=== PATIENT | female | born 1950 | race Caucasian/White ===

== ENCOUNTER → 2016-11-24 | Outpatient (CLI) | payer MEDICARE ==
--- NOTE | 2016-11-24 11:02 | MM ---
Reason for exam: history of breast cancer, conservation therapy. Last mammogram was performed 1 year ago. History: Patient is postmenopausal and has history of breast cancer at age 61. Family history of breast cancer in maternal aunt at age 42. Radiation therapy, May 2012. Chemotherapy, December 2011. Malignant right breast needle localzation of the right breast, November 14, 2011. Lumpectomy of the right breast, November 14, 2011. US RT VAD Breast Biopsy of the right breast, November 08, 2011. Benign US right guided VAD of the right breast, April 20, 2010. Took hormonal contraceptives for 5 years beginning at age 22. Physical Findings: Nurse did not find any significant physical abnormalities on exam. MG 3D Diag Mammo W/Cad [facility] Bilateral CC and MLO view(s) were taken. Prior study comparison: November 23, 2015, bilateral MG 3d diag mammo w/cad [facility]. May 13, 2014, left breast MG diagnostic mammo LT w CAD. The breast tissue is heterogeneously dense. This may lower the sensitivity of mammography. No suspicious calcifications are seen. Stable post operative changes in the right breast. No significant new findings when compared with previous films. These results were verbally communicated with the patient and result sheet given to the patient on 11/24/16. ASSESSMENT: Benign, BI-RAD 2 RECOMMENDATION: Follow-up diagnostic mammogram of both breasts in 1 year.
== END | disposition home or self-care (01) ==
LOC: RADMAMWWP 10:06
PROVIDERS: ATTEND Radiology Diagnostic Radiology
DX: Z08 Encounter for follow-up examination after completed treatment for malignant neoplasm (principal); Z85.3 Personal history of malignant neoplasm of breast
CPT/HCPCS: G0204; G0279

== ENCOUNTER → 2017-11-27 | Outpatient (CLI) | payer MEDICARE, OTHER ==
--- NOTE | 2017-11-27 13:09 | MM ---
Reason for exam: additional evaluation requested from prior study. Last mammogram was performed 1 year ago. History: Patient is postmenopausal and has history of breast cancer at age 61. Family history of breast cancer in maternal aunt at age 42. Radiation therapy, May 2012. Chemotherapy, December 2011. Malignant right breast needle localzation of the right breast, November 14, 2011. Lumpectomy of the right breast, November 14, 2011. US RT VAD Breast Biopsy of the right breast, November 08, 2011. Benign US right guided VAD of the right breast, April 20, 2010. Took hormonal contraceptives for 5 years beginning at age 22. Physical Findings: Nurse did not find any significant physical abnormalities on exam. MG 3D Diag Mammo W/Cad [facility] Bilateral CC and MLO view(s) were taken. Prior study comparison: November 24, 2016, bilateral MG 3d diag mammo w/cad [facility]. November 23, 2015, bilateral MG 3d diag mammo w/cad [facility]. The breast tissue is heterogeneously dense. This may lower the sensitivity of mammography. Prior biopsy in the right breast. No significant new findings when compared with previous films. These results were verbally communicated with the patient and result sheet given to the patient on 11/27/17. ASSESSMENT: Benign, BI-RAD 2 RECOMMENDATION: Routine screening mammogram of both breasts in 1 year.
== END | disposition home or self-care (01) ==
LOC: RADMAMWWP 10:37
PROVIDERS: ATTEND Radiology Diagnostic Radiology
DX: Z08 Encounter for follow-up examination after completed treatment for malignant neoplasm (principal); Z85.3 Personal history of malignant neoplasm of breast
CPT/HCPCS: 77066; G0279

== ENCOUNTER → 2017-12-11 | Outpatient (CLI) | payer MEDICARE, OTHER ==
--- NOTE | 2017-12-11 18:07 | BD ---
EXAMINATION TYPE: MG DEXA axial skeleton. DATE OF EXAM: 12/11/2017 COMPARISON: 07/23/2012 CLINICAL HISTORY: 67-year-old female age-related osteoporosis Height: 63.5 IN Weight: 188 LBS FRAX RISK QUESTIONS: Alcohol (3 or more units per day): NO Family History (Parent hip fracture): NO Glucocorticoids (More than 3mos): NO (Ex: prednisone, prednisolone, methylprednisolone, dexamethasone, and hydrocortisone). History of Fracture in Adulthood: YES RT FOOT FX AGE 67 Secondary Osteoporosis: 1. Type 1 Diabetes: NO 2. Hyperthyroidism: NO 3. Menopause before 45: AGE 54 4. Malnutrition: NO 5. Chronic liver disease: NO Rheumatoid Arthritis: NO Current Tobacco Use: NO RISK FACTORS HISTORY OF: Surgery to Hip([facility]) YES When: 07/2005 LEFT; 2 2005 RT HIP Active: YES Diet low in dairy products/other sources of calcium: YES Postmenopausal woman: AGE 54 MEDICATIONS: Thyroid Medications: YES Which medication: Synthroid How Lon YEARS Additional Medications: CALCIUM, VIT D, SYNTHROID, GABAPENTIN, TRAMADOL, HYDROCODONE,DEPRESSION MEDS, CHOLESTEROL MEDS, MAGNESIUM, VIT C, VIT B COMPLEX, COQ10, Additional History: BREAST CANCER WITH CHEMO AND RADIATION 2011 EXAM MEASUREMENTS: Bone mineral densitometry was performed using the [employer] System. Bone mineral density as measured about the Lumbar spine is: ----- L1-L4(G/cm2): 1.381 T Score Values are as follows: ----- L2: 1.3 ----- L3: 2.5 ----- L4: 1.7 ----- L1-L4: 1.7 Bone mineral density has: Increased 2.3% since study of: 07/23/2012 [facility] HIP REPLACEMENTS IMPRESSION: Normal (Values between +1 and -1 indicate normal bone mass). Consider repeating this study in 5 year s or sooner if there is some new clinical indication. Note that measurements were not taken at the hips given prior bilateral hip replacements. NOTE: T-SCORE=SD OF THE YOUNG ADULT MEAN.
== END | disposition home or self-care (01) ==
LOC: RADBDWWP 09:08
PROVIDERS: ATTEND Internal Medicine
DX: M81.0 Age-related osteoporosis without current pathological fracture (principal)
CPT/HCPCS: 77080

== ENCOUNTER → 2018-11-28 | Outpatient (CLI) | payer MEDICARE ==
--- NOTE | 2018-11-28 13:41 | MM ---
Reason for exam: additional evaluation requested from abnormal screening. Last mammogram was performed 1 year ago. History: Patient is postmenopausal and has history of breast cancer at age 61. Family history of breast cancer in maternal aunt at age 42. Radiation therapy, May 2012. Chemotherapy, December 2011. Malignant right breast needle localzation of the right breast, November 14, 2011. Lumpectomy of the right breast, November 14, 2011. US RT VAD Breast Biopsy of the right breast, November 08, 2011. Benign US right guided VAD of the right breast, April 20, 2010. Took hormonal contraceptives for 5 years beginning at age 22. Physical Findings: Nurse did not find any significant physical abnormalities on exam. MG 3D Diag Mammo W/Cad [facility] Bilateral CC and MLO view(s) were taken. Prior study comparison: November 27, 2017, bilateral MG 3d diag mammo w/cad [facility]. November 24, 2016, bilateral MG 3d diag mammo w/cad [facility]. The breast tissue is heterogeneously dense. This may lower the sensitivity of mammography. Interval weight loss with increased breast density. Post surgical changes on the right with fat necrosis calcifications. Medial decreased subareolar nodularity on the left. These results were verbally communicated with the patient and result sheet given to the patient on 11/28/18. ASSESSMENT: Incomplete: need additional imaging evaluation, BI-RAD 0 RECOMMENDATION: Ultrasound of the left breast. subareolar and medial half
--- NOTE | 2018-11-28 13:45 | USB ---
Reason for exam: additional evaluation requested from abnormal screening. History: Patient is postmenopausal and has history of breast cancer at age 61. Family history of breast cancer in maternal aunt at age 42. Radiation therapy, May 2012. Chemotherapy, December 2011. Malignant right breast needle localzation of the right breast, November 14, 2011. Lumpectomy of the right breast, November 14, 2011. US RT VAD Breast Biopsy of the right breast, November 08, 2011. Benign US right guided VAD of the right breast, April 20, 2010. Took hormonal contraceptives for 5 years beginning at age 22. US Breast Limited LT Left limited breast ultrasound including focal area of concern, retroareolar and axilla demonstrates scattered and heterogeneous areas present likely prominent islands of tissue. Given the changed appearance of the breast after patients weight loss, short interval follow up recommended. These results were verbally communicated with the patient and result sheet given to the patient on 11/28/18. ASSESSMENT: Probably benign, BI-RAD 3 RECOMMENDATION: Follow-up diagnostic mammogram of the left breast in 6 months.
== END | disposition home or self-care (01) ==
LOC: RADMAMWWP 10:47
PROVIDERS: ATTEND Radiology Diagnostic Radiology
DX: Z08 Encounter for follow-up examination after completed treatment for malignant neoplasm (principal); Z85.3 Personal history of malignant neoplasm of breast
CPT/HCPCS: 77066; 76642; G0279; 77062

== ENCOUNTER → 2019-05-29 | Outpatient (CLI) | payer MEDICARE ==
--- NOTE | 2019-05-30 10:06 | MM ---
Reason for exam: follow-up at short interval from prior study. Last mammogram was performed 6 months ago. History: Patient is postmenopausal, has history of other cancer at age 63, and has history of breast cancer at age 61. Family history of breast cancer in maternal aunt at age 42. Radiation therapy, May 2012. Chemotherapy, December 2011. Malignant right breast needle localzation of the right breast, November 14, 2011. Lumpectomy of the right breast, November 14, 2011. US RT VAD Breast Biopsy of the right breast, November 08, 2011. Benign US right guided VAD of the right breast, April 20, 2010. Took hormonal contraceptives for 5 years beginning at age 22. Physical Findings: Nurse did not find any significant physical abnormalities on exam. MG 3D Diag Mammo W/Cad LT CC, MLO, LM, and spot compression MLO view(s) were taken of the left breast. Prior study comparison: November 28, 2018, bilateral MG 3d diag mammo w/cad [facility]. November 27, 2017, bilateral MG 3d diag mammo w/cad [facility]. The breast tissue is heterogeneously dense. This may lower the sensitivity of mammography. The previously seen left retroareolar and medial asymmetries do not persist. Improved compression. Superior left breast distortion resolves on additional views. These results were verbally communicated with the patient and result sheet given to the patient on 05/29/19. ASSESSMENT: Benign, BI-RAD 2 RECOMMENDATION: Routine screening mammogram of both breasts in 6 months. Back on schedule for October 2019.
== END | disposition home or self-care (01) ==
LOC: RADMAMWWP 10:31
PROVIDERS: ATTEND Radiology Diagnostic Radiology
DX: R92.8 Other abnormal and inconclusive findings on diagnostic imaging of breast (principal); Z85.3 Personal history of malignant neoplasm of breast
CPT/HCPCS: 77065; G0279; 77061

== ENCOUNTER → 2020-01-09 | Outpatient (CLI) | payer MEDICARE ==
--- NOTE | 2020-01-09 11:10 | MM ---
Reason for exam: additional evaluation requested from prior study. Last mammogram was performed 7 months ago. History: Patient is postmenopausal, has history of other cancer at age 63, and has history of breast cancer at age 61. Family history of breast cancer in maternal aunt at age 42. Radiation therapy, May 2012. Chemotherapy, December 2011. Malignant right breast needle localzation of the right breast, November 14, 2011. Lumpectomy of the right breast, November 14, 2011. US RT VAD Breast Biopsy of the right breast, November 08, 2011. Benign US right guided VAD of the right breast, April 20, 2010. Took hormonal contraceptives for 5 years beginning at age 22. Physical Findings: Nurse did not find any significant physical abnormalities on exam. MG 3D Diag Mammo W/Cad [facility] Bilateral CC and MLO view(s) were taken. Prior study comparison: May 29, 2019, left breast MG 3d diag mammo w/cad LT. November 28, 2018, bilateral MG 3d diag mammo w/cad [facility]. November 27, 2017, bilateral MG 3d diag mammo w/cad [facility]. November 24, 2016, bilateral MG 3d diag mammo w/cad [facility]. The breast tissue is heterogeneously dense. This may lower the sensitivity of mammography. Benign appearing vascular calcifications. No suspicious abnormality. The left upper outer quadrant focal asymmetry appears less pronounced than on the prior. Post therapy change on the right. These results were verbally communicated with the patient and result sheet given to the patient on 01/09/20. ASSESSMENT: Benign, BI-RAD 2 RECOMMENDATION: Follow-up diagnostic mammogram of both breasts in 1 year.
== END | disposition home or self-care (01) ==
LOC: RADMAMWWP 09:41
PROVIDERS: ATTEND Internal Medicine
DX: C50.911 Malignant neoplasm of unspecified site of right female breast (principal); C50.912 Malignant neoplasm of unspecified site of left female breast; Z78.0 Asymptomatic menopausal state; Z85.89 Personal history of malignant neoplasm of other organs and systems; Z80.3 Family history of malignant neoplasm of breast
CPT/HCPCS: 77066; G0279; 77062

== ENCOUNTER → 2021-03-19 | Outpatient (CLI) | payer MEDICARE ==
--- NOTE | 2021-03-24 10:00 | MM ---
Reason for exam: screening (asymptomatic). Last mammogram was performed 1 year and 2 months ago. History: Patient is postmenopausal, has history of other cancer at age 63, and has history of breast cancer at age 61. Family history of breast cancer in maternal aunt at age 42. Radiation therapy, May 2012. Chemotherapy, December 2011. Malignant right breast needle localzation of the right breast, November 14, 2011. Lumpectomy of the right breast, November 14, 2011. US RT VAD Breast Biopsy of the right breast, November 08, 2011. Benign US right guided VAD of the right breast, April 20, 2010. Took hormonal contraceptives for 5 years beginning at age 22. Physical Findings: A clinical breast exam by your physician is recommended on an annual basis and results should be correlated with mammographic findings. MG 3D Screening Mammo W/Cad Bilateral CC and MLO view(s) were taken. Prior study comparison: January 09, 2020, bilateral MG 3d diag mammo w/cad [facility]. May 29, 2019, left breast MG 3d diag mammo w/cad LT. The breast tissue is heterogeneously dense. This may lower the sensitivity of mammography. Right post lumpectomy and radiation change. No significant changes when compared with prior studies. ASSESSMENT: Benign, BI-RAD 2 RECOMMENDATION: Routine screening mammogram of both breasts in 1 year.
== END | disposition home or self-care (01) ==
LOC: RADMAMWWP 13:28
PROVIDERS: ATTEND Internal Medicine
DX: Z12.31 Encounter for screening mammogram for malignant neoplasm of breast (principal); Z78.0 Asymptomatic menopausal state; Z85.3 Personal history of malignant neoplasm of breast; Z80.3 Family history of malignant neoplasm of breast
CPT/HCPCS: 77063; 77067

== ENCOUNTER → 2021-09-22 | Outpatient (CLI) | payer MEDICARE ==
--- NOTE | 2021-09-23 10:00 | ECHOF ---
Referral Reason:I35.0 Nonrheumatic aortic (valve) stenosis MEASUREMENTS -------- HEIGHT: 160.0 cm WEIGHT: 99.8 kg BP: RVIDd: 3.3 cm (< 3.3) IVSd: 1.3 cm (0.6 - 1.1) LVIDd: 4.2 cm (3.9 - 5.3) LVPWd: 1.3 cm (0.6 - 1.1) IVSs: 1.4 cm LVIDs: 3.1 cm LVPWs: 1.5 cm LA Diam: 4.1 cm (2.7 - 3.8) LAESV Index (A-L): 32.84 ml/m Ao Diam: 3.0 cm (2.0 - 3.7) AV Cusp: 1.6 cm (1.5 - 2.6) LA Diam: 4.4 cm (2.7 - 3.8) MV EXCURSION: 19.089 mm (> 18.000) MV EF SLOPE: 78 mm/s (70 - 150) EPSS: 0.6 cm MV E Guero: 0.81 m/s MV DecT: 297 ms MV A Guero: 1.26 m/s MV E/A Ratio: 0.64 AV maxP.35 mmHg AV meanP.09 mmHg RAP: 5.00 mmHg RVSP: 47.14 mmHg FINDINGS -------- Sinus rhythm. This was a technically good study. The left ventricular size is normal. There is mild concentric left ventricular hypertrophy. Overa ll left ventricular systolic function is normal with, an EF between 55 - 60 %. The right ventricle is normal in size. LA is midly dilated 29-33ml/m2. The right atrial size is normal. There is mild aortic valve sclerosis. There is mild aortic stenosis present. Peak/mean gradient a cross the Aortic Valve is 18.35mmHg / 9.09mmHg. Mild mitral regurgitation is present. Mild tricuspid regurgitation present. There is moderate pulmonary hypertension. The right ventric ular systolic pressure, as measured by Doppler, is 47.14mmHg. There is no pulmonic regurgitation present. Echo free space represents a pericardial fat pad. CONCLUSIONS -------- 1. The left ventricular size is normal. 2. There is mild concentric left ventricular hypertrophy. 3. Overall left ventricular systolic function is normal with, an EF between 55 - 60 %. 4. The right ventricle is normal in size. 5. LA is midly dilated 29-33ml/m2. 6. The right atrial size is normal. 7. There is mild aortic valve sclerosis. 8. There is mild aortic stenosis present. 9. Peak/mean gradient across the Aortic Valve is 18.35mmHg / 9.09mmHg. 10. Mild mitral regurgitation is present. 11. Mild tricuspid regurgitation present. 12. There is moderate pulmonary hypertension. 13. The right ventricular systolic pressure, as measured by Doppler, is 47.14mmHg. 14. There is no pulmonic regurgitation present. 15. Echo free space represents a pericardial fat pad. GAS APPLIANCE ADJUSTER: Mirtha Coyle RDCS
== END | disposition home or self-care (01) ==
LOC: RADECHMAIN 15:37
PROVIDERS: ATTEND Internal Medicine
DX: I08.3 Combined rheumatic disorders of mitral, aortic and tricuspid valves (principal)
CPT/HCPCS: 93306

== ENCOUNTER → 2021-10-12 | Outpatient (CLI) | payer MEDICARE ==
--- NOTE | 2021-10-12 19:07 | US ---
EXAMINATION TYPE: US carotid duplex BILAT DATE OF EXAM: 10/12/2021 COMPARISON: NONE CLINICAL HISTORY: 71-year-old female I65.23 Occlusion and stenosis. No h/o stroke. TECHNIQUE: Carotid duplex ultrasound examination. Indirect Doppler criteria was utilized. FINDINGS: EXAM MEASUREMENTS: RIGHT: Peak Systolic Velocity (PSV) cm/sec ----- Right CCA: 71.3 ----- Right ICA: 134 ----- Right ECA: 120 ICA/CCA ratio: 1.8 RIGHT: End Diastole cm/sec ----- Right CCA: 13.3 ----- Right ICA: 15.6 ----- Right ECA: 15.6 LEFT: Peak Systolic Velocity (PSV) cm/sec ----- Left CCA: 52.5 ----- Left ICA: 109 ----- Left ECA: 65.4 ICA/CCA ratio: 2.1 LEFT: End Diastole cm/sec ----- Left CCA: 12.2 ----- Left ICA: 27.8 ----- Left ECA: 65.4 VERTEBRALS (direction of flow): Right Vertebral: Antegrade Left Vertebral: Antegrade Rhythm: Normal Fish Rod Maker notes: Mild homogeneous plaque with no significant stenosis seen IMPRESSION: No hemodynamically significant internal carotid artery stenosis on either side. Criteria for Assigning % of Stenosis / Diameter reduction (Estimation based on the indirect measurements of the internal carotid artery velocities (ICA PSV). 1. Normal (no stenosis)=ICA PSV < 125 cm/s: ratio < 2.0: ICA EDV<40 cm/s. 2. Less than 50% stenosis=ICA PSV < 125 cm/s: ratio < 2.0: ICA EDV<40 cm/s. 3. 50 to 69% stenosis=ICA PSV of 125 to 230 cm/s: ration 2.0 ? 4.0: ICA EDV 40-100 cm/s. 4. Greater than 70% stenosis to near occlusion= ICA PSV > 230 cm/s: ratio > 4.0: ICA EDV > 100 cm/s. 5. Near occlusion= ICA PSV velocities may be low or undetectable: variable ratio and ICA EDV. 6. Total occlusion=unable to detect flow.
== END | disposition home or self-care (01) ==
LOC: RADUSWWP 15:22
PROVIDERS: ATTEND Internal Medicine
DX: I65.23 Occlusion and stenosis of bilateral carotid arteries (principal)
CPT/HCPCS: 93880

== ENCOUNTER → 2023-03-22 | Outpatient (CLI) | payer MEDICARE, OTHER ==
--- NOTE | 2023-03-23 12:09 | MM ---
Reason for Exam: Screening (asymptomatic). Last screening mammogram was performed 12 month(s) ago. Patient History: Menarche at age 14. First Full-Term at age 22. Postmenopausal. Breast cancer, age 61. Other cancer, age 63. Previous chest radiation therapy. Previous chemotherapy. Hormonal Contraceptives for 5 years from age 22 until age 27. 11/14/2011, Lumpectomy on the Right side. 11/14/2011, Malignant Excisional Biopsy on the right side. 04/20/2010, Benign Core Biopsy on the right side. 05/2012, Radiation Therapy. 12/2011, Chemotherapy. Maternal aunt had breast cancer, age 42. Prior Study Comparison: 01/09/2020 Bilateral Diagnostic Mammogram, [facility]. 03/19/2021 Bilateral Screening Mammogram, [facility]. 03/21/2022 Bilateral MG 3D screening mammo w/cad, [facility]. Tissue Density: The breast tissue is heterogeneously dense. This may lower the sensitivity of mammography. Findings: Analyzed By CAD. Posttreatment changes right breast with surgical clips and constipation. There is no suspicious group of microcalcifications or new suspicious mass in either breast. Overall Assessment: Benign, BI-RAD 2 Management: Screening Mammogram of both breasts in [address] [facility] will attempt to contact patient to return for supplemental views and ultrasound if indicated. Patient should continue monthly self-breast exams. A clinical breast exam by your physician is recommended on an annual basis. This exam should not preclude additional follow-up of suspicious palpable abnormalities. Note on Wanda scores and lifetime risk: 1. A Wanda score greater than 3% is considered moderate risk. If this is the case, consider specialist referral to assess eligibility for a risk reducing agent. 2. If overall lifetime risk for the development of breast cancer is 20% or higher, the patient may qualify for future screening with alternating mammogram and breast MRI. Electronically signed and approved by: Damian Barba DO
== END | disposition home or self-care (01) ==
LOC: RADMAMWWP 08:47
PROVIDERS: ATTEND Internal Medicine Hematology & Oncology
DX: Z12.31 Encounter for screening mammogram for malignant neoplasm of breast (principal); Z78.0 Asymptomatic menopausal state; Z80.3 Family history of malignant neoplasm of breast
CPT/HCPCS: 77063; 77067

== ENCOUNTER → 2024-02-19 | Outpatient (CLI) | payer MEDICARE, OTHER ==
--- NOTE | 2024-02-19 10:25 | XR ---
EXAMINATION TYPE: XR Hip Complete RT DATE OF EXAM: 02/19/2024 9:46 AM CLINICAL INDICATION:Female, 73 years old with history of M25.551 RIGHT HIP PAIN; [facility] COMPARISON: None. TECHNIQUE: XR Hip Complete RT; hip was examined in the frontal and lateral projections and a AP pelvi s. FINDINGS: No evidence for acute process, joint dislocation or significant soft tissue swelling. IMPRESSION: No acute process.
== END | disposition home or self-care (01) ==
LOC: RADXRMAIN 09:13
PROVIDERS: ATTEND Internal Medicine
DX: Z12.31 Encounter for screening mammogram for malignant neoplasm of breast (principal); Z13.820 Encounter for screening for osteoporosis
CPT/HCPCS: 73502

== ENCOUNTER → 2024-03-22 | Outpatient (CLI) | payer MEDICARE, OTHER ==
--- NOTE | 2024-03-27 22:56 | MM ---
Reason for Exam: Screening (asymptomatic). Last screening mammogram was performed 12 month(s) ago. Patient History: Menarche at age 14. First Full-Term at age 22. Postmenopausal. Breast cancer, age 61. Other cancer, age 63. Previous chest radiation therapy. Previous chemotherapy. Hormonal Contraceptives for 5 years from age 22 until age 27. 11/14/2011, Lumpectomy on the Right side. 11/14/2011, Malignant Excisional Biopsy on the right side. 04/20/2010, Benign Core Biopsy on the right side. 05/2012, Radiation Therapy. 12/2011, Chemotherapy. Maternal aunt had breast cancer, age 42. Prior Study Comparison: 03/19/2021 Bilateral Screening Mammogram, [facility]. 03/21/2022 Bilateral MG 3D screening mammo w/cad, [facility]. 03/22/2023 Bilateral MG 3D screening mammo w/cad, [facility]. Tissue Density: There are scattered areas of fibroglandular density. Findings: Analyzed By CAD. The pattern is symmetrical. There is a large coarse calcification with some distortion of prior lumpectomy site. No significant interval changes are evident. Benign vascular calcifications present bilaterally. Multiple scattered benign round calcifications are within the left breast. No suspicious groups of microcalcifications, spiculated or lobular masses, architectural distortion or other secondary signs of malignancy are mammographically apparent. Overall Assessment: Benign, BI-RAD 2 Management: Screening Mammogram of both breasts in 1 year. A negative mammogram report should not preclude additional follow up of suspicious palpable abnormalities. Patient should continue monthly self breast exam. A clinical breast exam by your physician is recommended on an annual basis and results should be correlated with mammographic findings. Note on Wanda scores and lifetime risk: 1. A Wanda score greater than 3% is considered moderate risk. If this is the case, consider specialist referral to assess eligibility for a risk reducing agent. 2. If overall lifetime risk for the development of breast cancer is 20% or higher, the patient may qualify for future screening with alternating mammogram and breast MRI. Electronically signed and approved by: Duane Leyva D.O. Radiologis
== END | disposition home or self-care (01) ==
LOC: RADMAMWWP 10:32
PROVIDERS: ATTEND Internal Medicine Hematology & Oncology
DX: Z12.31 Encounter for screening mammogram for malignant neoplasm of breast (principal); Z78.0 Asymptomatic menopausal state; Z80.3 Family history of malignant neoplasm of breast
CPT/HCPCS: 77063; 77067

== ENCOUNTER → 2024-03-22 | Outpatient (CLI) | payer MEDICARE, OTHER ==
--- NOTE | 2024-03-27 12:27 | BD ---
EXAMINATION TYPE: Axial Bone Density DATE OF EXAM: 03/22/2024 CLINICAL HISTORY: 73 years old Female. ICD-10 CODE: M81.0 AGE-RELATED OSTEOPOROSIS W/O CURRENT PATHO LO Height: 63.5" Weight: 250lbs FRAX RISK QUESTIONS: Alcohol (3 or more units per day): No Family History (Parent hip fracture): No Glucocorticoids (More than 3mos): No (Ex: prednisone, prednisolone, methylprednisolone, dexamethasone, and hydrocortisone). History of Fracture in Adulthood: Yes Secondary Osteoporosis: 1. Type 1 Diabetes: No 2. Hyperthyroidism: No 3. Menopause before 45: 49 4. Malnutrition: No 5. Chronic liver disease: No Rheumatoid Arthritis: Yes Current Tobacco Use: No RISK FACTORS HISTORY OF: Hip Fracture (Right/Left): No Spine Fracture: No History of Wrist Fracture: No Surgery to Spine/Hip(right/left)/Wrist (right/left): Bilateral hip replacements When: 2003 & 2004 MEDICATIONS: Thyroid Medications: Yes Which medication: Synthroid How Long: Since 2013, pt states she has no thyroid Osteoporosis Medications: Which medication: How Long: EXAM MEASUREMENTS: Bone mineral densitometry was performed using the [employer]. Bone mineral density as measured about the Lumbar spine is: ----- L1-L4(G/cm2): 1.372 T Score Values are as follows: ----- L1: 0.2 ----- L2: 1.1 ----- L3: 3.0 ----- L4: 1.6 ----- L1-L4: 1.6 Z Score Values are as follows: ----- L1: 1.2 ----- L2: 2.1 ----- L3: 4.0 ----- L4: 2.6 ----- L1-L4: 2.6 Bone mineral density has: decreased -0.7% since study of: 12/11/2017 Bone mineral density about the L Wrist (g/cm2): 0.580 T Score values are as follows: -----Dist. R+U: -2.7 -----Prox. R+U: -0.1 -----Radius total: -1.6 Z Score values are as follows: -----Dist. R+U: -0.7 -----Prox. R+U: 1.8 -----Radius total: 0.4 Baseline @MPH FRAX%s: The graph provided illustrates a % chance for a major osteoporotic fx and a % chance for the hips probability for fx in 10 years time. IMPRESSION: Osteoporosis (T Score less than -2.5). There is increased fracture risk and therapy is usually indicated based on age. Re-Screen 1-2 years. NOTE: T-SCORE=SD OF THE YOUNG ADULT MEAN.
== END | disposition home or self-care (01) ==
LOC: RADBDWWP 10:34
PROVIDERS: ATTEND Internal Medicine
DX: M81.0 Age-related osteoporosis without current pathological fracture (principal); Z78.0 Asymptomatic menopausal state
CPT/HCPCS: 77080